=== PATIENT | female | born 1980 | race Caucasian/White ===

== ENCOUNTER 2019-03-20 16:52 | Emergency (ER) | payer OTHER ==
[2019-03-20 17:18] VITALS: BP 149/90; PULSE 79; TEMP 97.9; BMI 35.7
--- NOTE | 2019-03-20 17:21 | PDOC ---
Rapid Medical Evaluation Chief Complaint: Cold Symptoms Time Seen by Provider: 03/20/19 17:20 Medical Evaluation: Allergies Allergy/AdvReac Type Severity Reaction Status Date / Time No Known Allergies Allergy Verified 03/20/19 17:17 Vital Signs Temp Pulse Resp BP Pulse Ox 97.9 F 79 18 149/90 99 03/20/19 17:16 03/20/19 17:16 03/20/19 17:16 03/20/19 17:16 03/20/19 17:16 03/20/19 17:20 Pt c/o: sinus pressure and nasal congestion Pt on brief exam: lcta, vss, noted max tenderness PT ordered for: none pt to proceed to the ED Discharge Disposition - Diagnosis Sinus pressure, Viral URI - Discharge Dispostion Disposition: HOME Condition at time of disposition: Stable - Referrals Referrals: Noah Lindsey MD [Staff Physician] - - Patient Instructions Printed Discharge Instructions: DI for Viral Upper Respiratory Infection -- Adult Additional Instructions: Tylenol Motrin as directed for fever. Return to the emergency room for worsening symptoms. Follow-up with your primary care physician in 1 to 2 days for further evaluation and treatment options. - Post Discharge Activity Work/School Note: Back to Work
--- NOTE | 2019-03-20 17:42 | PDOC ---
History of Present Illness - General Chief Complaint: Cold Symptoms Stated Complaint: cold symptoms Time Seen by Provider: 03/20/19 17:20 - History of Present Illness Initial Comments: 03/20/19 17:41 38-year-old female with a past medical history of hypertension presents for flulike symptoms x3 days. Past History - Past Medical History Allergies/Adverse Reactions: Allergies Allergy/AdvReac Type Severity Reaction Status Date / Time No Known Allergies Allergy Verified 03/20/19 17:17 COPD: No HTN: Yes - Psycho Social/Smoking Cessation Hx Smoking History: Never smoked Information on smoking cessation initiated: No Hx Alcohol Use: No Drug/Substance Use Hx: No Review of Systems - Review of Systems Constitutional: Yes: Fever HEENTM: Yes: Nose Congestion Respiratory: Yes: Cough *Physical Exam - Vital Signs Last Vital Signs Temp Pulse Resp BP Pulse Ox 97.9 F 79 18 149/90 99 03/20/19 17:16 03/20/19 17:16 03/20/19 17:16 03/20/19 17:16 03/20/19 17:16 - Physical Exam Comments: 03/20/19 17:42 GENERAL: The patient is awake, alert, and fully oriented, in no acute distress. HEAD: Normal with no signs of trauma. EYES: sclera anicteric, conjunctiva clear. ENT: Ears normal NECK: Normal range of motion LUNGS: Breath sounds equal, clear to auscultation bilaterally. No wheezes, and no crackles. HEART: S1 and S2 without murmur, rub or gallop. ABDOMEN: Soft, nontender, normoactive bowel sounds. No guarding, no rebound. No masses. EXTREMITIES: Normal range of motion, no edema. No clubbing or cyanosis. No cords, erythema, or tenderness. NEUROLOGICAL: Cranial nerves II through XII grossly intact. Normal speech, normal gait. PSYCH: Normal mood, normal affect. SKIN: Warm, Dry, normal turgor, no rashes or lesions noted. Medical Decision Making - Medical Decision Making 03/20/19 18:55 No infiltrate on chest x-ray most likely viral upper respiratory infection flu negative supportive care with Tylenol Motrin follow-up with PCP Discharge - Discharge Information Problems reviewed: Yes Clinical Impression/Diagnosis: Sinus pressure, Viral URI Condition: Stable Disposition: HOME - Admission No - Follow up/Referral Referrals: Noah Lindsey MD [Staff Physician] - - Patient Discharge Instructions Patient Printed Discharge Instructions: DI for Viral Upper Respiratory Infection -- Adult Additional Instructions: Tylenol Motrin as directed for fever. Return to the emergency room for worsening symptoms. Follow-up with your primary care physician in 1 to 2 days for further evaluation and treatment options. - Post Discharge Activity
== END 2019-03-20 19:02 | disposition home or self-care (01) ==
LOC: JERFT 16:52
DX: G50.1 Atypical facial pain (principal); J06.9 Acute upper respiratory infection, unspecified
CPT/HCPCS: 71046-TC-FY; 87804; 99281-25

== ENCOUNTER 2020-09-30 13:47 | Emergency (ER) | payer OTHER ==
[2020-09-30 14:14] VITALS: BP 150/98; PULSE 86; TEMP 98.6; BMI 38.7
[2020-10-01 03:07] LABS: SARS-CoV-2 NAA Not Detected (Not Detected)
== END 2020-09-30 16:36 | disposition home or self-care (01) ==
LOC: JER 13:47
DX: M79.10 Myalgia, unspecified site (principal); Z11.52 Encounter for screening for COVID-19
CPT/HCPCS: 99283-25; C9803; U0003; U0005

== ENCOUNTER 2023-08-28 08:28 | Emergency (ER) | payer OTHER ==
[2023-08-28 08:54] VITALS: BP 138/77; PULSE 89; RESP 17; TEMP 98.2; BMI 81.8
== END 2023-08-28 10:26 | disposition home or self-care (01) ==
LOC: JER 08:28
DX: J06.9 Acute upper respiratory infection, unspecified (principal); B97.89 Other viral agents as the cause of diseases classified elsewhere; R50.9 Fever, unspecified; R05.9 Cough, unspecified; M54.6 Pain in thoracic spine; Z20.822 Contact with and (suspected) exposure to COVID-19
CPT/HCPCS: 0241U-QW; 71046-TC-FY; 99284-25

== ENCOUNTER → 2023-12-14 | Day surgery (SDC) | payer OTHER | END | disposition home or self-care (01) | LOC: FMAMMOTONE 10:15 | PROVIDERS: ATTEND Nurse Practitioner Family | PROC: 0HBT3ZX Excision of Right Breast, Percutaneous Approach, Diagnostic (ICD-10-PCS; principal; 2023-12-14) | DX: N60.11 Diffuse cystic mastopathy of right breast (principal); N64.89 Other specified disorders of breast; R92.1 Mammographic calcification found on diagnostic imaging of breast | CPT/HCPCS: 19081; 76098-TC-FY; 87899; 88305-TC; A4648 ==